=== PATIENT | female | born 1995 | race Caucasian/White ===

== ENCOUNTER 2021-01-01 12:19 | Emergency (ER) | payer OTHER, SELFPAY ==
--- NOTE | ~2021-01-01 | XR_ITS ---
EXAMINATION:[id number] DATE: 01/01/2021 12:55 INDICATION: 3 days of left-sided neck pain TECHNIQUE: AP, lateral and open-mouth and submental odontoid views of the cervical spine are provide d. COMPARISON: None FINDINGS: Alignment is normal. Odontoid is intact. Normal atlantoaxial interval. Vertebral body heights are no rmal. Mild disc height loss with mild right uncovertebral osteoarthritis and small anterior endplate osteophytes at C5-C6. Remaining disc spaces and uncovertebral joints are normal. Cervical facet joint s are also normal. Prevertebral soft tissues are normal. IMPRESSION: 1. Mild spondylosis at C5-C6. Reviewed, dictated and finalized at location A.
--- NOTE | 2021-01-01 12:27 | ED.NECK ---
HPI - Neck Pain/Injury General Chief Complaint: Neck Pain/Injury Stated Complaint: neck pain Time Seen by Provider: 01/01/21 12:27 Source: patient and RN notes reviewed History of Present Illness HPI Narrative: Patient is a 25-year-old female who presents the urgent care with complaints of left-sided neck pain radiating down the left arm with some tingling to the left hand. Patient states that it started 3 days ago and she has been trying to work out and rub the area . Patient states that that she has been taking Tylenol for the pain. Patient denies of any known injury, trauma, past injury to the neck. No other acute complaints. No acute distress noted. Patient aware of the plan of care. Some parts of this dictation were generated by voice recognition software and may contain typographical and/or grammatical inaccuracies. Related Data Allergies Allergy/AdvReac Type Severity Reaction Status Date / Time Penicillins Allergy Severe Anaphylactic Verified 01/01/21 12:37 Shock Review of Systems Review of Systems: Narrative: CONSTITUTIONAL: Denies fever, chills, or sweats. EYES: Denies visual changes, redness, or discharge. ENT: Denies rhinorrhea, congestion, sore throat, or otalgia. CARDIOVASCULAR: Denies chest pain, palpitations, or edema. RESPIRATORY: Denies cough or dyspnea. GASTROINTESTINAL: Denies abdominal pain, nausea, vomiting, or diarrhea. GENITOURINARY: Denies dysuria or hematuria. SKIN: Denies rash or itching. MUSCULOSKELETAL: Reports of left neck pain rating down the left arm NEUROLOGIC: Denies headache, numbness, or weakness. All other systems reviewed are negative, except as documented in HPI. PMFSH Comments At the time of my signature, I reviewed and agree with the nursing past medical, surgical, social, and family history. There is no relevant family history pertinent to the patient complaint. Exam Narrative: Exam Narrative: GENERAL: This is a well-nourished, well-developed patient, in no apparent distress. HEAD: normocephalic, atraumatic. EYES: PERRL. Sclera clear/white. Vision is grossly intact. EARS: External ears normal NOSE: External nose normal with no obvious nasal discharge, nares without redness, no rhinorrhea. THROAT: Mucous membranes moist NECK: Range of motion limited due to pain. Difficulty with chin tuck, head left, flexion to the left. Moderate left-sided cervical tenderness. SKIN: warm, intact with no suspicious lesions or rash, good texture and turgor. NEURO: awake, alert, and oriented to person, place and time. There were no obvious focal neurologic abnormalities. EXTREMITIES: No clubbing, cyanosis, or edema. Course Vital Signs Vital signs: Vital Signs Temperature 97.8 F 01/01/21 12:34 Pulse Rate 86 01/01/21 12:34 Respiratory Rate 18 01/01/21 12:34 Blood Pressure 124/71 01/01/21 12:34 Pulse Oximetry 100 01/01/21 12:34 Temperature 97.8 F 01/01/21 12:34 Pulse Rate 86 01/01/21 12:34 Respiratory Rate 18 01/01/21 12:34 Blood Pressure 124/71 01/01/21 12:34 Pulse Oximetry 100 01/01/21 12:34 Reviewed MDM - Neck Pain/Injury MDM Narrative Medical decision making narrative: Reviewed x-ray results with the patient. She is aware that she has slight spondylosis in the cervical spine. Advised the patient to complete steroid regimen as prescribed. Use ibuprofen as needed for pain. Use the Flexeril prior to bedtime as a muscle relaxer. Be aware that the Flexeril will increase drowsiness and you should not take it while watching your child or driving a car. Follow-up with your PCP within 2 to 5 days or for worsening symptoms or failure to improve. Differential Diagnosis Differential diagnosis: Likely whiplash injury to neck, torticollis and strain of neck muscle Imaging Data Radiologist's impression: Shannon Bonilla [place], [place] [phone] XRay ReportSigned Patient: Eliel Dickson RDOB: 1995MR#: [id number]/Sex: 25 / FAcct:
[2021-01-01 12:34] VITALS: BP 124/71; PULSE 86; RESP 18; TEMP 36.6; O2SAT 100
== END 2021-01-01 13:15 | disposition home or self-care (01) ==
PROVIDERS: Emergency Provider Nurse Practitioner Family
DX: S16.1XXA Strain of muscle, fascia and tendon at neck level, initial encounter (principal); X58.XXXA Exposure to other specified factors, initial encounter
CPT/HCPCS: 72040; 99203; G0463